=== PATIENT | male | born 1995 | race Caucasian/White ===

== ENCOUNTER 2021-04-04 09:46 | Emergency (ER) | payer SELFPAY ==
[2021-04-04 09:50] VITALS: BP 141/89; PULSE 85; RESP 19; TEMP 37; O2SAT 98; BMI 20.9
--- NOTE | 2021-04-04 09:52 | XR_ITS ---
PROCEDURE INFORMATION: Exam: XR Right Knee Exam date and time: 04/04/2021 9:52 AM Age: 25 years old Clinical indication: Pain; Knee; Right TECHNIQUE: Imaging protocol: XR Right knee. Views: 3 views. COMPARISON: No relevant prior studies available. FINDINGS: Bones/joints: There is no evidence of acute fracture.There is no evidence of malalignment or dislocation. Mild suprapatellar joint effusion Soft tissues: Normal. IMPRESSION: There is no evidence of acute fracture.There is no evidence of malalignment or dislocation.
--- NOTE | 2021-04-04 10:07 | HMH.EDUTC ---
[facility] [place] Disposition Clinical Impression: Knee pain, acute Qualifiers: Laterality: right Qualified Code(s): M25.561 - Pain in right knee Disposition: Home, Self-Care Condition on Discharge: Good Instructions: DI for Knee Pain Additional Instructions: Weightbearing as tolerated rest Ice with cold pack for 20 minutes remove may repeat for comfort every hour Stefan wrap for support and swelling no less in the shower. Be sure not too tight but not to lose either Elevate as much as possible to help reduce swelling and therefore pain Ibuprofen every 6 hours as needed for pain or inflammation. If needs something more you can take Tylenol every 4 hours as needed as long as her primary care has told he was okayed for you to take both. If improving any do not need to follow-up you can bring begin exercising 2-3 weeks after injury. Follow-up immediately if new or worsening symptoms or no noticeable improvement over the next 3-5 days. call ortho may need more work up Prescriptions: methylPREDNISolone [Medrol 4mg tab] 4 mg PO DIRECTED #21 tab Transmission Status: Pending to [facility]/pharmacy #[id number] Referrals: Provider,Referral, [Primary Care Provider] - Time of Disposition: 10:26 Medical Decision Making - John Inquiry Pt receiving controlled substance: No Vital Signs: 04/04/21 09:50 Temperature 98.6 F Temperature Source Oral Pulse Rate [Right Brachial] 85 Respiratory Rate 19 Blood Pressure [Right Arm] 141/89 H Blood Pressure Mean [Right Arm] 106 Blood Pressure Source [Right Arm] Automatic Cuff Blood Pressure Position [Right Arm] Sitting 02 Sat by Pulse Oximetry 98 Oxygen Delivery Method Room Air Orders (Tests/Meds): ORDERS Category Date Time Status XR knee RT 3V Stat Exams 04/04/21 09:52 Taken [facility] [place] HPI - General Chief complaint: Urgent [facility] Stated complaint: right knee pain, no accident Time Seen by Provider: 04/04/21 10:07 Mode of Arrival: Ambulatory Source of Information: Patient Limitations: No Limitations Description of Symptoms (Recalled from Triage Doc. by RN): PATIENT C/O INJURY TO RIGHT KNEE [place]. HEENT Symptoms (Recalled from RN notes): No Resp Symptoms (Recalled from RN notes): No Skin Symptoms (Recalled from RN notes): No MS Symptoms (Recalled from RN notes): Yes Functional Status (Recalled from RN notes): WNL - History of Present Illness Provider Complaint: 25 yr old male presents for rt knee pain. Pt states he was jumping on trampoline yesterday and had to stop jumping due to pain. pt states only hurts with movement. - Related Data Previous Rx's Medication Instructions Recorded methylPREDNISolone [Medrol 4mg 4 mg PO DIRECTED #21 tab 04/04/21 tab] Allergies Allergy/AdvReac Type Severity Reaction Status Date / Time No Known Allergies Allergy Verified 06/03/19 12:22 - Worker's Comp Is this a Worker's Comp case?: No [facility] History - Hepatitis A Screen Drug use history?: No High risk sexual behaviors?: No History of sexually transmitted infection?: No Currently employed?: No Childcare worker?: No Do you have indoor plumbing?: Yes Do you have electricity?: Yes Attestation statement:: This patient has been screened for Hepatitis A risk factors. I have reviewed the patient's past medical history: Yes - Social History Smoking Status: Unknown if ever smoked Tobacco Type: smokeless tobacco # Packs/Day (cigarettes): 0 Alcohol Intake: never Occupational Status: other ROS Obtained: Yes Systems reviewed as appropriate & no additional complaints - Constitutional Constitutional: Reports system reviewed and no additional complaints, except as docu, Denies body ache, Denies poor appetite - Eyes Eyes: Reports system reviewed and no additional complaints, except as docu, Denies blurry vision - ENT Ears, Nose, Mouth, and Throat: Reports system reviewed and no additional complaints, except as docu, Denies dizziness
[2021-04-04 10:28] VITALS: BP 141/89; PULSE 85; RESP 19; TEMP 37; O2SAT 98
== END 2021-04-04 10:34 | disposition home or self-care (01) ==
PROVIDERS: Emergency Provider Nurse Practitioner Family
DX: M25.561 Pain in right knee (principal)
CPT/HCPCS: 73562; 99202; G0463

== ENCOUNTER 2021-12-22 14:42 | Emergency (ER) | payer OTHER, SELFPAY ==
--- NOTE | 2021-12-22 14:46 | XR_ITS ---
FINAL REPORT CLINICAL HISTORY: TWISTED IT FINDINGS: Right ankle Three views were obtained. There is no acute fracture or dislocation. The joint spaces appear normal. No soft tissue abnormality is identified. IMPRESSION: No acute process. Reviewed, Interpreted and Dictated by Sherman Chavez III, MD Transcribed by Shraddha Winston Authenticated and [facility]
--- NOTE | 2021-12-22 14:46 | XR_ITS ---
FINAL REPORT CLINICAL HISTORY: TWISTED THEM WHILE WALKING FINDINGS: Right foot Three views were obtained. There is no acute fracture or dislocation. The joint spaces appear normal. No soft tissue abnormality is identified. IMPRESSION: No acute process. Reviewed, Interpreted and Dictated by Sherman Chavez III, MD Transcribed by Shraddha Winston Authenticated and [facility]
[2021-12-22 15:05] VITALS: BP 137/80; PULSE 86; RESP 17; TEMP 37.1; O2SAT 98; BMI 22.3
--- NOTE | 2021-12-22 15:27 | HMH.EDUTC ---
[facility] [place] Clinical Impression: Ankle sprain Qualifiers: Encounter type: initial encounter Involved ligament of ankle: unspecified ligament Laterality: right Qualified Code(s): S93.401A - Sprain of unspecified ligament of right ankle, initial encounter Disposition: Home, Self-Care Condition on Discharge: Good Instructions: Ankle Sprain, DI for Ankle Sprain, How To Perform RICE (Rest, Ice, Compress, Elevate), Ibuprofen Additional Instructions: *weight bearing as tolerated *RICE, Rest the extremity, Ice 15-20 minutes 3-4 times daily, Compress- wear the stefan wrap as discussed as much as possible to help reduce swelling and pain, Elevate the extremity when at rest *Stefan wrap is for support and help control swelling, use it except in the shower. Be sure that is not to tight but not to loose either *Elevate when resting *Ibuprofen 600-800mg every 6-8 hours as needed for pain an inflammation. If need something more can take Tylenol in between doses of Ibuprofen to help Immediately follow up with your family doctor for new or worsening of symptoms, or no noticeable improvement over the next 3-5 days Call back to the [facility] later today for the official reading of your xray Follow up with Orthopedic if needed Return if needed Referrals: Carolyn Arevalo APRN [Primary Care Provider] - Pasha Ortega JR, MD [Physician] - Medical Decision Making - John Inquiry Pt receiving controlled substance: No John was queried for this patient: No Vital Signs: 12/22/21 15:05 12/22/21 15:43 Temperature 98.7 F 98.7 F Temperature Source Oral Pulse Rate 86 Pulse Rate [Right Brachial] 86 Respiratory Rate 17 17 Blood Pressure 137/80 Blood Pressure [Right Arm] 137/80 Blood Pressure Mean [Right Arm] 99 Blood Pressure Source [Right Arm] Automatic Cuff Blood Pressure Position [Right Arm] Sitting 02 Sat by Pulse Oximetry 98 Oxygen Delivery Method Room Air - Radiology Data #1 Image(s): Ankle Image Reviewed: Yes I reviewed the patient's radiology image Preliminary Findings: No Fracture Seen #2 Image(s): Foot/Toes Image Reviewed: Yes I reviewed the patient's radiology image Preliminary Findings: No Fracture Seen [facility] [place] HPI - General Stated complaint: AO; 12/22/21; Ankle pain Time Seen by Provider: 12/22/21 15:28 Mode of Arrival: Ambulatory Source of Information: Patient Limitations: No Limitations Description of Symptoms (Recalled from Triage Doc. by RN): PATIENT C/O RIGHT FOOT AND ANKLE PAIN AFTER FALLING TODAY HEENT Symptoms (Recalled from RN notes): No Resp Symptoms (Recalled from RN notes): No Skin Symptoms (Recalled from RN notes): No MS Symptoms (Recalled from RN notes): Yes Functional Status (Recalled from RN notes): WNL - History of Present Illness Provider Complaint: Patient states that he feel off gate and landed on his right foot on a board and it rolled and he rolled his right ankle States that ever since he has been having pain and tenderness when he walks or moves it certain ways States that he was worried that he may have broken it - Related Data Allergies Allergy/AdvReac Type Severity Reaction Status Date / Time No Known Allergies Allergy Verified 06/03/19 12:22 - Worker's Comp Is this a Worker's Comp case?: No [facility] History - Hepatitis A Screen Attestation statement:: This patient has been screened for Hepatitis A risk factors. I have reviewed the patient's past medical history: Yes - Social History Smoking Status: Unknown if ever smoked Tobacco Type: smokeless tobacco # Packs/Day (cigarettes): 0 Alcohol Intake: never Occupational Status: other ROS Obtained: Yes All systems reviewed & no additional complaints, Yes Systems reviewed as appropriate & no additional complaints - Constitutional Constitutional: Reports system reviewed and no additional complaints, except as docu, Denies body ache, Denies chills, Denies fever(s) - Cardiovascular Cardiovascular: Reports system revi
[2021-12-22 15:43] VITALS: BP 137/80; PULSE 86; RESP 17; TEMP 37.1; O2SAT 98
== END 2021-12-22 15:59 | disposition home or self-care (01) ==
PROVIDERS: Emergency Provider Nurse Practitioner; PCP Nurse Practitioner
DX: S93.401A Sprain of unspecified ligament of right ankle, initial encounter (principal); W19.XXXA Unspecified fall, initial encounter
CPT/HCPCS: 73610; 73630; 99212; G0463

== ENCOUNTER → 2022-01-08 17:01 | Outpatient (CLI) | payer OTHER, SELFPAY ==
--- NOTE | 2022-01-08 17:01 | MR_ITS ---
PROCEDURE INFORMATION: Exam: MR Right Lower Extremity Joint Without Contrast; Ankle Exam date and time: 01/08/2022 5:25 PM Age: 26 years old Clinical indication: Pain; Ankle; Right; Additional info: Ankle pain, injury TECHNIQUE: Imaging protocol: Magnetic resonance imaging of the Right lower extremity without contrast. Exam focused on the ankle. COMPARISON: CR XR ANKLE RT MIN 3V 12/22/2021 2:47 PM FINDINGS: Bones and cartilage: There is marrow edema in the neck and distal head of the talus which may be bone bruising or nondisplaced fracture. CT is recommended for better trabecular detail given the risk for potential development of avascular necrosis within injury at this level. There is a minimal focus of additional marrow edema posterolateral aspect of the talar dome. Is limited degenerative flattening and minimal longitudinal split of the peroneus brevis posterior to the lateral malleolus without full-thickness retracted tear. Joint spaces: No joint effusion. LIGAMENTS: Distal tibiofibular syndesmosis: Unremarkable. No tear. Anterior talofibular ligament: Unremarkable. No tear. Posterior talofibular ligament: Unremarkable. No tear. Calcaneofibular ligament: Unremarkable. No tear. Deltoid ligament complex: Unremarkable. No tear. TENDONS: Flexor tendons of foot: Unremarkable as visualized. Tibialis posterior tendon: Unremarkable as visualized. Peroneal tendons: Unremarkable as visualized. Extensor tendons of foot: Unremarkable as visualized. Tibialis anterior tendon: Unremarkable as visualized. Achilles tendon: Unremarkable as visualized. Tarsal canal (Sinus tarsi): Unremarkable. Normal signal of the fat. Tarsal tunnel: Unremarkable. Muscles: Unremarkable. Soft tissues: Unremarkable. Plantar fascia: Plantar fascia is unremarkable. IMPRESSION: 1. There is marrow edema in the neck and distal head of the talus which may be bone bruising or nondisplaced fracture. CT is recommended for better trabecular detail given the risk for potential development of avascular necrosis with injury at this level. 2. There is a minimal focus of additional marrow edema posterolateral aspect of the talar dome. 3. Limited degenerative flattening and minimal longitudinal split of the peroneus brevis posterior to the lateral malleolus without full-thickness retracted tear.
== END ==
PROVIDERS: PCP Nurse Practitioner; Visit Provider Podiatrist
DX: M25.571 Pain in right ankle and joints of right foot (principal); M95.8 Other specified acquired deformities of musculoskeletal system; S93.401A Sprain of unspecified ligament of right ankle, initial encounter
CPT/HCPCS: 73721

== ENCOUNTER → 2022-01-19 14:22 | Outpatient (CLI) | payer OTHER, SELFPAY ==
--- NOTE | 2022-01-19 14:22 | CT_ITS ---
FINAL REPORT TECHNIQUE: Thin section axial CT images with coronal and sagittal reformats were performed. This study was performed with techniques to keep radiation doses as low as reasonably achievable (ALARA). Individualized dose reduction techniques using automated exposure control or adjustment of mA and/or kV according to the patient''s size were employed. CLINICAL HISTORY: PAIN, OCD TALUS, Fracture eval COMPARISON: Report dated 01/08/2022 FINDINGS: There is no fracture or dislocation. There are presumed bone islands in the talar dome and anterior process of the calcaneus. No other bony mass is identified. There is no soft tissue mass or cyst. IMPRESSION: No acute process. Reviewed, Interpreted and Dictated by Sherman Chavez III, MD Transcribed by Shraddha Winston Authenticated and [facility]
== END ==
PROVIDERS: PCP Nurse Practitioner; Visit Provider Podiatrist
DX: M25.571 Pain in right ankle and joints of right foot (principal); M25.471 Effusion, right ankle; S92.101A Unspecified fracture of right talus, initial encounter for closed fracture; S99.911A Unspecified injury of right ankle, initial encounter
CPT/HCPCS: 73700

== ENCOUNTER 2022-04-21 13:36 | Emergency (ER) | payer OTHER, SELFPAY ==
[2022-04-21 13:37] VITALS: BP 114/72; PULSE 94; RESP 18; TEMP 38; O2SAT 96; BMI 20.9
[2022-04-21 13:42] VITALS: BMI 20.9
[2022-04-21 13:45] LABS: Coronavirus 19, PCR Not Detected (NotDetected); Influenza B, PCR Not Detected (NotDetected)
[2022-04-21 14:32] LABS: Influenza A, PCR Detected (NotDetected)
--- NOTE | 2022-04-21 16:14 | HMH.EDGENADL ---
Discharge Plan Disposition Patient Disposition: Home, Self-Care Condition: Good Prescriptions Prescriptions: New oseltamivir [Tamiflu] 75 mg capsule 75 mg PO BID Qty: 10 0RF No Action meloxicam 7.5 mg tablet 7.5 mg PO DAILY 30 Days Qty: 30 2RF Referrals Follow up/Referrals: Provider,Referral, [Primary Care Provider] - See instructions Activity Restrictions/Add. Instructions Additional Instructions/Restrictions: Tamiflu as prescribed. ADDITIONAL INSTRUCTIONS FOR INFLUENZA (FLU): Rest, drink plenty of fluids. Tylenol or Ibuprofen for fever and/or aches and pains. Monitor your symptoms. IF YOU HAVE AN EMERGENCY WARNING SIGN (INCLUDING TROUBLE BREATHING), SEEK EMERGENCY MEDICAL CARE IMMEDIATELY. Influenza Isolation: People with influenza should isolate for 5 days starting at the onset of symptoms. Then if they are asymptomatic (no symptoms) or their symptoms are resolving (without fever for 24 hours), you may end isolation. What to do: Stay in a separate room from other household members, if possible. Use a separate bathroom, if possible. Avoid contact with other members of the household and pets. Don?t share personal household items, like cups, towels, and utensils. Wear a mask when around other people if able. Clinical Impressions Clinical Impression: Influenza A Instructions Patient Instructions: DI for Influenza -- Adult Discharge ED Provider: John Richter General Adult HPI General Chief complaint: Upper Respiratory Infection Stated complaint: FEVER,COUGH Time Seen by Provider: 04/21/22 16:14 Mode of Arrival: Ambulatory Source of Information: Patient Limitations: No Limitations Description of Symptoms (Recalled from ER Triage Doc. by RN): c/o fever, cough and achy for 4 days. History of Present Illness HPI narrative: He is sick since Tuesday morning 3 days ago with cough, body aches, fever, rhinorrhea, sore throat, diarrhea, and shortness of breath. No known exposures. No flu vaccine this year. Previously healthy, no chronic medical problems. Related Data Previous Rx's Medication Instructions Recorded meloxicam 7.5 mg tablet 7.5 mg PO DAILY 30 days #30 tabs 12/29/21 oseltamivir 75 mg capsule (Tamiflu) 75 mg PO BID #10 caps 04/21/22 Allergies Allergy/AdvReac Type Severity Reaction Status Date / Time No Known Allergies Allergy Verified 02/01/22 09:07 [facility] Disclaimer: The information contained in this section may have been updated after the patient was seen, as this information can be updated by other users. Social History Smoking Status: Current every day smoker tobacco type: smokeless tobacco alcohol intake: never current occupational status: other Travel in the last 8 weeks: None ROS Obtained: Yes Systems reviewed as appropriate & no additional complaints except as documented Constitutional Constitutional: Reports body ache and Reports fever(s) ENT Ears, Nose, Mouth, and Throat: Reports nasal discharge and Reports sore throat Cardiovascular Cardiovascular: Denies chest pain Respiratory Respiratory: Reports shortness of breath and Reports cough Gastrointestinal Gastrointestingal: Reports diarrhea; Denies abdominal pain or vomiting Physical Exam General General appearance: alert and in no apparent distress Eye Eye exam: Present normal appearance and EOMI ENT ENT exam: Present mucous membranes moist Neck Neck exam: Present normal inspection and trachea midline Chest Chest inspection: Present normal inspection and symmetric chest wall rise Respiratory Respiratory exam: Present normal lung sounds bilaterally; Absent respiratory distress Cardiovascular Cardiovascular exam: Present regular rate, normal rhythm and normal heart sounds Abdominal Exam Abdominal exam: Present soft; Absent distention or tenderness Neurological Exam Neurological exam: Present alert and oriented X3 Psych[facility]
--- NOTE | 2022-04-21 16:26 | XR_ITS ---
PROCEDURE INFORMATION: Exam: XR Chest Exam date and time: 04/21/2022 4:26 PM Age: 26 years old Clinical indication: Cough and dyspnea and fever and shortness of breath; Patient HX: Cough, SOA, cp, tightness, fever, body aches x days TECHNIQUE: Imaging protocol: Radiologic exam of the chest. Views: 2 views. COMPARISON: No relevant prior studies available. FINDINGS: Lungs: No evidence of pneumonia or interstitial edema. Pleural spaces: Unremarkable. No pleural effusion. No pneumothorax. Heart/Mediastinum: Unremarkable. No cardiomegaly. Bones/joints: Unremarkable. IMPRESSION: No evidence of pneumonia or interstitial edema.
[2022-04-21 17:38] VITALS: BP 114/72; PULSE 94; RESP 18; TEMP 38; O2SAT 96
== END 2022-04-21 17:40 | disposition home or self-care (01) ==
PROVIDERS: Emergency Provider Emergency Medicine
DX: J10.1 Influenza due to other identified influenza virus with other respiratory manifestations (principal)
CPT/HCPCS: 71046; 99283; C9803; U0003; U0005

== ENCOUNTER 2023-02-25 03:07 | Emergency (ER) | payer OTHER, SELFPAY ==
[2023-02-25] VITALS (8 sets, daily range): BP systolic 117–138; BP diastolic 67–85; PULSE 49–63; RESP 16–17; TEMP 36.7–36.8; O2SAT 98–100; BMI 20.9
--- NOTE | 2023-02-25 03:27 | HMH.EDGENADL ---
Discharge Plan Disposition Patient Disposition: Home, Self-Care Condition: Good Prescriptions Prescriptions: No Action No Known Home Medications Referrals Follow up/Referrals: Caorlyn Arevalo APRN [Primary Care Provider] - See instructions Activity Restrictions/Add. Instructions Additional Instructions/Restrictions: You were evaluated in the emergency department today for abdominal pain. We did identify gallbladder sludge, however you do not have to have your gallbladder taken out today per the surgeon. Avoid foods that may worsen your symptoms such as fatty foods, heavy meals, or overly sweet foods. Drink plenty of water. Make an appointment with your primary care physician for reevaluation in 2 to 3 days. Follow-up with the general surgeon outpatient as directed. Return to the emergency department with any new, worsening, or otherwise concerning symptoms. Clinical Impressions Clinical Impression: Abdominal pain, acute, right upper quadrant, Splenomegaly Instructions Patient Instructions: DI for Acute Abdominal Pain Discharge ED Provider: Madi Piña General Adult HPI <Eric Kruger MD - Last Filed: 02/25/23 07:28> General Chief complaint: Abdominal Pain Stated complaint: Right side pain with nausea Time Seen by Provider: 02/25/23 03:10 Mode of Arrival: Ambulatory Source of Information: Patient Limitations: No Limitations Description of Symptoms (Recalled from ER Triage Doc. by RN): Patient reports that he had skinned a deer two weeks ago and was ultimately diagnosed with cryptosporidium. States that he began having sharp pain in the right flank that radiated throughout abdomen and caused back spasms. Patient reported having watery diarrhea for 1 week after diagnosis, and currently does not have any diarrhea. Patient denies dysuria. States that the pain was the most intense that it has ever been today. Currently reports pain 3/10, 10/10 at it's worse approximately 20 minutes prior to arrival. 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 He reports that his diarrhea only lasted about a week after his diagnosis. He reports that this pain is episodic in nature, severe, and has been worsening in duration. Previously was lasting for minutes, now is lasting for up to an hour. Currently he does not have this pain. No history of abdominal surgeries, no other medical conditions, does not use any medications. He reports that he is not having any vomiting, intermittently nauseous. Related Data Home Medications Medication Instructions Recorded Confirmed No Known Home Medications 02/25/23 02/25/23 Allergies Allergy/AdvReac Type Severity Reaction Status Date / Time No Known Allergies Allergy Verified 02/01/22 09:07 [facility] <Eric Kruger MD - Last Filed: 02/25/23 07:28> [facility] Disclaimer: The information contained in this section may have been updated after the patient was seen, as this information can be updated by other users. Social History Smoking Status: Never smoker alcohol intake: never current occupational status: other Travel in the last 8 weeks: None <Eric Kruger MD - Last Filed: 02/25/23 07:28> ROS Obtained: Yes All systems reviewed & no additional complaints except as documented Physical Exam <Eric Kruger MD - Last Filed: 02/25/23 07:28> General General appearance: alert and in no apparent distress Head Head exam: atraumatic and normocephalic Eye Eye exam: Present normal appearance, PERRL and EOMI ENT ENT exam: Present normal oropharynx and normal external ear exam Neck Neck exam: Present normal inspection and full ROM Chest Chest inspection: Present normal inspection and symmetric chest wall rise; Absent tenderness Respiratory
--- NOTE | 2023-02-25 03:36 | CT_ITS ---
PROCEDURE INFORMATION: Exam: CT Abdomen And Pelvis With Contrast Exam date and time: 02/25/2023 3:55 AM Age: 27 years old Clinical indication: Abdominal pain; Flank; Right lower quadrant (rlq); Additional info: Ruq, rlq abd pain, recent cryptosporidium TECHNIQUE: Imaging protocol: Computed tomography of the abdomen and pelvis with contrast. Radiation optimization: All CT scans at this facility use at least one of these dose optimization techniques: automated exposure control; mA and/or kV adjustment per patient size (includes targeted exams where dose is matched to clinical indication); or iterative reconstruction. Contrast material: ISOVUE; Contrast volume: 75 ml; Contrast route: IV; REPORTING DATA: Count of CT and Cardiac NM exams in prior 12 months: This patient has received 0 known CTs and 0 known cardiac nuclear medicine studies in the 12 months prior to the current study. COMPARISON: CR XR CHEST 2V 04/21/2022 4:26 PM FINDINGS: Liver: There is periportal edema. Gallbladder and bile ducts: The gallbladder is moderately distended, perhaps mildly thick-walled. Please correlate clinically. Right upper quadrant ultrasound may be performed as indicated to further assess. Pancreas: Normal. No ductal dilation. Spleen: The spleen is enlarged measuring 13.5 x 9.9 x 5.6 cm. Adrenal glands: Normal. No mass. Kidneys and ureters: The kidneys enhance symmetrically and there is no hydronephrosis. Stomach and bowel: There is moderate stool noted in the colon with scattered diverticula. Appendix: No evidence of appendicitis. Intraperitoneal space: Unremarkable. No free air. No significant fluid collection. Vasculature: Unremarkable. No abdominal aortic aneurysm. Lymph nodes: Mesenteric lymphadenopathy is noted measuring up to 11 mm in maximum short axis dimension. Urinary bladder: The urinary bladder is contracted. Reproductive: Unremarkable as visualized. Bones/joints: Unremarkable. No acute fracture. Soft tissues: Unremarkable. IMPRESSION: Splenomegaly. Mild mesenteric lymphadenopathy, nonspecific requiring clinical correlation. Constipation. Periportal edema. Query mild gallbladder mural thickening. Right upper quadrant ultrasound may be performed to further assess.
[2023-02-25 03:47] LABS: Alanine Aminotransferase 83 U/L (12-78); Albumin Level 3.7 g/dl (3.5-5.0); Albumin/Globulin Ratio 1.4 (1.1-1.8); Alkaline Phosphatase 104 U/L (38-126); Anion Gap 10.2 mEq/L (5-15); Aspartate Amino Transferase 114 U/L (17-59); Bilirubin,Total 0.9 mg/dl (0.2-1.3); Blood Urea Nitrogen 6 mg/dl (9-20); Calcium 8.8 mg/dl (8.4-10.2); Carbon Dioxide 29 mmol/L (22.0-30.0); Chloride 107 mmol/L (98-107); Creatinine Clearance Estimated 153 mL/min (50-200); Estimated Glomerular Filt Rate 135 ml/min (>60); GFR (African American) 164 ML/MIN (>60); Globulin 2.7 g/dL (1.3-3.2); Glucose 118 mg/dl (74-100); Lipase 110 U/L (23-300); Potassium 3.2 mmoL/L (3.5-5.1); Sodium 143 mmol/L (136-145); Total Protein,Serum 6.4 g/dl (6.3-8.2)
[2023-02-25 03:49] LABS: Basophils # 0.1 K/mm3 (0-0.2); Basophils % 0.9 % (0.1-2.0); Eosinophils # 0.6 K/mm3 (0.0-0.4); Eosinophils % 7.4 % (0.1-12.0); Hematocrit 44.1 % (42.0-52.0); Hemoglobin 14.7 g/dL (14.1-18.0); Lymphocytes # 2.9 K/mm3 (0.7-4.5); Lymphocytes % 38.4 % (10-50); Mean Corpuscular HGB Conc 33.4 g/dL (31.8-35.4); Mean Corpuscular Hemoglobin 30.4 pg (27.0-31.2); Mean Corpuscular Volume 91.1 fl (80-94); Mean Platelet Volume 8.4 fl (7.4-10.4); Monocytes # 0.4 K/mm3 (0.1-1.0); Monocytes % 4.8 % (1.7-9.3); Neutrophils # 3.7 K/mm3 (1.8-7.8); Neutrophils % 48.6 % (37.0-80.0); Platelet Count 349 K/mm3 (142-424); Red Blood Count 4.84 M/mm3 (4.60-6.20); Red Cell Distribution Width 13.7 % (11.5-17.5); White Blood Count 7.6 K/mm3 (4.8-10.8)
--- NOTE | 2023-02-25 05:04 | PC.NURSE ---
in room talking with patient at this time
--- NOTE | 2023-02-25 05:16 | PC.NURSE ---
called and spoke with presley Souza re: no result on ct at this time yet received. She returned call with statement that they were chatting with them and trying to get it expedited to reading .
--- NOTE | 2023-02-25 05:51 | US_ITS ---
FINAL REPORT CLINICAL HISTORY: RUQ pain, elevated liver enzymes, equivocal CT COMPARISON: None FINDINGS: Sonographic images of the right upper quadrant were obtained. The pancreas is unremarkable. There is mild fatty infiltration of the liver. There is a large amount of sludge present within the gallbladder, and gallbladder wall thickening is present, measuring 6 mm. The common duct measures 5mm, at upper limits of normal. Limited images of the right kidney are unremarkable. The portal vein is somewhat enlarged measuring 16 mm in diameter, with normal directional flow. IMPRESSION: Large amount of sludge present in the gallbladder with gallbladder wall thickening, the common duct is at the upper limits of normal in size. The portal vein is enlarged, with normal directional flow. Mild fatty infiltration of the liver. Reviewed, Interpreted and Dictated by Sherman Chavez III, MD Transcribed by Fe Hughes Authenticated and [facility]
--- NOTE | 2023-02-25 06:16 | PC.NURSE ---
paged dr fuentes to discuss poc
--- NOTE | 2023-02-25 07:40 | PC.NURSE ---
Rounded on pt. Pt provided with another warm blanket. Updated on POC. No other needs voiced.
--- NOTE | 2023-02-25 07:50 | PC.NURSE ---
Pt to u/s via wheelchair
--- NOTE | 2023-02-25 08:10 | PC.NURSE ---
Visitor at bedside, updated pt in u/s right now.
--- NOTE | 2023-02-25 08:19 | PC.NURSE ---
pt is back from u/s. Rounded on pt, no needs at this time and denies any pain or nausea.
--- NOTE | 2023-02-25 08:22 | PC.NURSE ---
Dr. Gonzales aware to call back to ER to speak with Dr. Piña
--- NOTE | 2023-02-25 08:26 | PC.NURSE ---
Dr. Piña at bedside
--- NOTE | 2023-02-25 08:43 | PC.NURSE ---
Dr. Piña speaking wtih Dr. Gonzales on the phone
[2023-02-26 08:19] LABS: HBsAg Screen Negative (Negative); HCV Ab Non Reactive (Non Reactive); Hep A Ab, IGM Negative (Negative); Hep B Core Ab, IgM Negative (Negative)
== END 2023-02-25 09:10 | disposition home or self-care (01) ==
PROVIDERS: Emergency Medicine; Emergency Provider Emergency Medicine; PCP Nurse Practitioner
DX: R10.11 Right upper quadrant pain (principal); K80.50 Calculus of bile duct without cholangitis or cholecystitis without obstruction; R16.1 Splenomegaly, not elsewhere classified; E87.6 Hypokalemia; R11.0 Nausea
CPT/HCPCS: 36415; 74177; 76705; 80053; 80074; 83690; 85025; 99284; Q9967